=== PATIENT | male | born 2000 | race Asian ===

== ENCOUNTER 2021-01-01 17:30 | Emergency (ER) | payer OTHER ==
[~2021-01-01] VITALS: Ht 167.6 cm; Wt 105.2 kg
[2021-01-01 17:52] VITALS: BP 134/84
--- NOTE | 2021-01-01 19:21 | NUR ---
Patient given discharge instructions and they have confirmed that they understand the instructions. Patient ambulatory with steady gait. NAD, all questions answered appropriately, denies additional needs at this time. No personal belongings left in room after discharge.
--- NOTE | 2021-01-01 19:22 | NUR ---
PATIENT DISCHARGED FROM [facility] [place].
== END 2021-01-01 19:25 | disposition home or self-care (01) ==
LOC: ED 19:19
DX: J02.8 Acute pharyngitis due to other specified organisms (principal); Z20.822 Contact with and (suspected) exposure to COVID-19
CPT/HCPCS: 87081; 87880; 99283; U0003; U0005